=== PATIENT | female | born 1960 | race Caucasian/White ===

== ENCOUNTER → 2023-01-04 09:04 | Outpatient (BNVA) | payer OTHER, SELFPAY | PROVIDERS: Visit Provider Family Medicine | DX: R53.83 Other fatigue (principal); R63.1 Polydipsia | CPT/HCPCS: 80053; 80061; 81000; 84439; 84443; 85025 ==

== ENCOUNTER 2023-01-14 11:43 | Outpatient (CLI) | payer OTHER, SELFPAY ==
--- NOTE | 2023-01-14 12:00 | MM_ITS ---
WS: [id number] BILATERAL SCREENING DIGITAL TOMOSYNTHESIS MAMMOGRAM WITH CAD HISTORY: Screening. COMPARISON: None available. Bilateral CC and MLO views with tomosynthesis and synthetic mammography submitted. Computer aided det ection analyzed. Breast composition: The breasts are heterogeneously dense, which may obscure small masses. No suspici ous masses, microcalcifications or architectural distortion. Benign calcification anterior LEFT breas t. MM/[place] [id number] IMPRESSION: BI-RADS: 2-Benign FOLLOW UP: 1 Year Follow-up
== END 2023-01-14 11:44 | disposition home or self-care (01) ==
LOC: RAD 11:49
PROVIDERS: PCP Family Medicine; Visit Provider Family Medicine
DX: Z12.31 Encounter for screening mammogram for malignant neoplasm of breast (principal)
CPT/HCPCS: 77063; 77067; 80053; 80061; 81000; 84439; 84443; 85025

== ENCOUNTER → 2023-01-18 09:40 | Outpatient (BNVA) | payer OTHER, SELFPAY | PROVIDERS: PCP Family Medicine; Visit Provider Family Medicine | DX: N39.0 Urinary tract infection, site not specified (principal) | CPT/HCPCS: 81000; 81003 ==

== ENCOUNTER 2023-09-17 06:00 | Outpatient (RCR) | payer OTHER, SELFPAY | END 2023-09-21 23:59 | disposition home or self-care (01) | LOC: GPT 06:00 | PROVIDERS: Visit Provider Orthopaedic Surgery | DX: M16.11 Unilateral primary osteoarthritis, right hip (principal) | CPT/HCPCS: 97110; 97140; 97162 ==

== ENCOUNTER 2023-09-22 06:00 | Outpatient (RCR) | payer OTHER, SELFPAY | END 2023-10-21 23:59 | disposition home or self-care (01) | LOC: GPT 06:00 | PROVIDERS: Visit Provider Orthopaedic Surgery | DX: M16.11 Unilateral primary osteoarthritis, right hip (principal) | CPT/HCPCS: 97110; 97140 ==

== ENCOUNTER 2023-10-22 06:00 | Outpatient (RCR) | payer OTHER, SELFPAY | END 2023-11-21 23:59 | disposition home or self-care (01) | LOC: GPT 06:00 | PROVIDERS: Visit Provider Orthopaedic Surgery | DX: M16.11 Unilateral primary osteoarthritis, right hip (principal) | CPT/HCPCS: 97110; 97112; 97140; 97164; 97530 ==

== ENCOUNTER 2023-11-22 06:00 | Outpatient (RCR) | payer OTHER, SELFPAY | END 2023-12-22 23:59 | disposition home or self-care (01) | LOC: GPT 06:00 | PROVIDERS: Visit Provider Orthopaedic Surgery | DX: M16.11 Unilateral primary osteoarthritis, right hip (principal) | CPT/HCPCS: 97110; 97112 ==

== ENCOUNTER 2024-03-07 11:46 | Emergency (ER) | payer MEDICARE, OTHER, SELFPAY ==
[2024-03-07] VITALS (21 sets, daily range): BP systolic 141–183; BP diastolic 80–104; PULSE 78–103; RESP 11–20; TEMP 36.4; O2SAT 96–100; BMI 26.6
--- NOTE | 2024-03-07 11:49 | ECG_ITS ---
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 Measurements Intervals [place] Rate: 83 P: 67 SD: 172 QRS: 37 QRSD: 86 T: 23 QT: 378 QTc: 446 Interpretive Statements SINUS RHYTHM No previous ECG available for comparison Electronically Signed On 03-07-2024 12:27:26 CDT by Ok Purcell M.D. [id number]
--- NOTE | 2024-03-07 11:49 | XR_ITS ---
WS: [id number] Exam: XR chest 1V portable [id number] Date/Time of Exam: 03/07/2024 11:58 AM Reason For Exam: chest pain No priors. The lungs are fully expanded and clear. Normal cardiomediastinal silhouette. No pleural effusions. Mi ld dextroscoliosis of the T-spine. IMPRESSION: 1. No acute cardiopulmonary finding.
[2024-03-07 12:05] LABS: Basophils % 0.3 %; Eosinophils # 0.1 10^3/uL (0.0-0.8); Hematocrit 36.4 % (36-47); Lymphocytes # 2.3 10^3/uL (0.8-4.8); Lymphocytes % 19.4 %; Mean Corpuscular HGB Conc 32.1 g/dL (30-55); Mean Corpuscular Hemoglobin 30.2 pg (27-33); Mean Corpuscular Volume 94.1 fl (85-98); Mean Platelet Volume 10.4 fL (7.4-10.4); Monocytes # 0.7 10^3/uL (0.2-0.9); Monocytes % 5.8 %; Neutrophils # 8.76 10^3/uL (1.8-7.7); Neutrophils % 73.1 %; Nucleated Red Blood Cells % 0 %; Platelet Count 234 10^3/cmm (157-399); Red Blood Count 3.87 10^6/uL (3.85-5.65); Red Cell Distribution Width 12.5 % (12.1-15.1); White Blood Count 11.99 10^3/uL (3.29-11.43)
[2024-03-07 12:14] LABS: INR 0.97 (0.8-1.2)
[2024-03-07 12:20] LABS: Alanine Aminotransferase 10 U/L (0-33); Alkaline Phosphatase 89 U/L (35-105); Anion Gap 15.6 (5-19); Aspartate Amino Transferase 15 U/L (0-32); Blood Urea Nitrogen 18 mg/dL (8-23); Carbon Dioxide 23 mmol/L (22-29); Chloride 107 mmol/L (98-107); Creatinine Clr Calc Pharmacy 72.5125; Globulin 2.8 g/dL (1.3-4.6); Glucose 108 mg/dL (65-115); Lipase 45 U/L (13-60); Osmolality Calculated 294 mOsm/kg (285-295); Potassium 4.6 mmol/L (3.5-5.1); Sodium 141 mmol/L (136-145); Total Bilirubin 0.2 mg/dL (0.15-1.2); Total Protein 6.8 g/dL (6.6-8.7)
[2024-03-07 12:21] LABS: Troponin(5th) Baseline 7 ng/L (0-10)
[2024-03-07] MEDS: sodium chloride 0.9% 1,000 ML 999 ML IV (12:46)
[2024-03-07] MEDS: ketorolac 30 mg/mL INJ IVP (12:48)
[2024-03-07] MEDS: metoclopramide 5 mg/mL SDV 2 mL 10 MG IVP (12:50)
--- NOTE | 2024-03-07 13:12 | ED_ITS ---
HPI - Chest Pain 2 General: Chief Complaint: Chest Pain Stated Complaint: Chestpain, Abd pain HTN Time Seen by Provider: 03/07/24 11:49 History of Present Illness: Patient presents to the ER with complaints of chest pain that radiates to her abdomen but also radiates up into her neck and around back of her head. Patient says she has been very nauseous but has not vomited. Patient denies any fever. Patient says she is been battling the headaches off and on for about the last 2 months and a headache usually causes abdominal pain. This time patient is noted chest pain also. She says the chest pain is new. Chest pain is not reproducible with palpation. There is nothing that brings the chest pain on or makes it stop. Review of Systems 2 General: Reports: 10 or more systems reviewed and unremarkable except in HPI and below PFSH ED 2 PFSH: Family History Other Cancer Social History Smoking and tobacco/nicotine status: former use of tobacco/nicotine Quit status (tobacco/nicotine): has quit using Second hand smoke exposure: Yes Alcohol intake: never Household members: spouse Physical Exam 2 Const: COMMON NORMALS: no acute distress, average body habitus, patient oriented x3, no limitations, healthy appearing, alert and well nourished HENMT: COMMON NORMALS: normocephalic, atraumatic, hearing grossly normal bilaterally, external ears normal, Normal external nose present, moist oral mucous membranes and oropharynx normal HEAD & SCALP: normocephalic and atraumatic NOSE: Normal external nose present EXTERNAL EAR: Yes external ears normal Neck/C-Spine: COMMON NORMALS: full ROM, no lymphadenopathy, supple, no meningeal signs, no JVD and Thyroid normal THYROID: Thyroid normal Chest: COMMONS NORMALS: normal inspection of the chest and normal palpation of entire chest wall Resp: COMMON NORMALS: normal respiratory effort, No retractions, No use of accessory muscles and clear to auscultation bilaterally AUSCULTATION: clear to auscultation bilaterally Cardio: COMMON NORMALS: no JVD, regular rate, regular rhythm, S1 normal heart sound present, S2 normal heart sound present, No gallops present (Cardio), No clicks present (Cardio), No murmurs present (Cardio) and No rub (Cardio) R ATE: regular rate RHYTHM: regular rhythm HEART SOUNDS: S1 normal heart sound present and S2 normal heart sound present GI: COMMON NORMALS: Normal to inspection, nondistended, normoactive bowel sounds present, Soft to palpation, non-tender, No hepatosplenomegaly present and no masses PALPATION: Yes Soft to palpation and Yes No hepatosplenomegaly present Neuro: COMMON NORMALS: patient oriented x3 SENSORIUM/ORIENTATION: Yes alert MENINGEAL SIGNS: Yes no meningeal signs Course 2 Vital Signs: Vital signs: Vital Signs Temperature 97.6 F 03/07/24 11:48 Pulse Rate 84 03/07/24 15:20 Respiratory Rate 13 03/07/24 15:20 Blood Pressure 142/92 03/07/24 15:20 Pulse Oximetry 96 03/07/24 15:20 Oxygen Delivery Me thod Room Air 03/07/24 13:51 MDM - Chest Pain Medical Decision Making Patient was worked up in a typical chest pain fashion with serial EKGs serial enzymes chest x-ray. Patient was also given 30 of Toradol, 10 of Reglan, 80 Zofran, this helped her headache and her nausea. Patient be discharged home to follow-up with her PCP on an as-needed basis. Differential Diagnosis Unlikely acute massive pulmonary embolism, acute respiratory failure, acute myocardial infarction, cardiac arrest or sudden cardiac Medical Records I reviewed the patient's medical records. Lab Data I reviewed the patient's lab results. 03/07/24 11:55 03/07/24 11:55 Laboratory Results WBC 11.99 10^3/uL (3.29-11.43) H 03/07/24 11:55 RBC 3.87 10^6/uL (3.85-5.65) 03/07/24 11:55 Hgb 11.70 g/dL (11.27-16.99) 03/07/24 11:55 Hct 36.4 % (36-47) 03/07/24 11:55 MCV 94.1 fl (85-98) 03/07/24 11:55 MCH 30.2 pg (27-33) 03/07/24 11:55 MCHC 32.1 g/dL (30-55) 03/07/24 11:55 RDW 12.5 % (12.1-15.1) 03/07/24 11:55 Plt Count 234 10^3/cmm (157-399) 03/07/24 11:55 MPV 10.4 fL (7.4-10.4) 03/07/24 11:55 Neut % (Auto) 73.1 % 03/07/24 11:55 Lymph % (Auto) 19.4 % 03/07/24 11:55 Mccone % (Auto) 5.8 % 03/07/24 11:55 Eos % (Auto) 1.0 % 03/07/24 11:55 Baso % (Auto) 0.3 % 03/07/24 11:55 Neut # (Auto) 8.76 10^3/uL (1.8-7.7) H 03/07/24 11:55 Lymph # (Auto) 2.3 10^3/uL (0.8-4.8) 03/07/24 11:55 Mccone # (Auto) 0.7 10^3/uL (0.2-0.9) 03/07/24 11:55 Eos # (Auto) 0.1 10^3/uL (0.0-0.8) 03/07/24 11:55 Baso # (Auto) 0.0 10^3/uL (0.0-0.1) 03/07/24 11:55 Nucleated RBC % (auto) 0 % 03/07/24 11:55 Nucleated RBCs # 0.0 /100WBC 03/07/24 11:55 PT 13.10 SECONDS (12.1-14.9) 03/07/24 11:55 INR 0.97 (0.8-1.2) 03/07/24 11:55 Sodium 141 mmol/L (136-145) 03/07/24 11:55 Potassium 4.6 mmol/L (3.5-5.1) 03/07/24 11:55 Chloride 107 mmol/L (98-107) 03/07/24 11:55 Carbon Dioxide 23 mmol/L (22-29) 03/07/24 11:55 Anion Gap 15.6 (5-19) 03/07/24 11:55 BUN 18 mg/dL (8-23) 03/07/24 11:55 Creatinine 0.8 mg/dL (0.5-0.9) 03/07/24 11:55 GFR Calculation 72.0 mL/min (90-130) L 03/07/24 11:55 Glucose 108 mg/dL (65-115) 03/07/24 11:55 Calculated Osmolality 294 mOsm/kg (285-295) 03/07/24 11:55 Calcium 9.0 mg/dL (8.5-10.5) 03/07/24 11:55 Total Bilirubin 0.2 mg/dL (0.15-1.2) 03/07/24 11:55 AST 15 U/L (0-32) 03/07/24 11:55 ALT 10 U/L (0-33) 03/07/24 11:55 Alkaline Phosphatase 89 U/L (35-105) 03/07/24 11:55 Troponin T Baseline 7 ng/L (0-10) 03/07/24 11:55 Troponin T 120 Minute 7.18 ng/L (0-10) 03/07/24 14:00 Delta Troponin T 0.18 ABS# (0-10) 03/07/24 14:00 Total Protein 6.8 g/dL (6.6-8.7) 03/07/24 11:55 Albumin 4.0 g/dL (3.5-5.2) 03/07/24 11:55 Globulin 2.8 g/dL (1.3-4.6) 03/07/24 11:55 Lipase 45 U/L (13-60) 03/07/24 11:55 Urine Color Yellow (Yellow) 03/07/24 13:45 Urine Appearance Hazy (CLEAR) A 03/07/24 13:45 Urine pH 8 (5-7) H 03/07/24 13:45 Ur Specific [place] 1.010 (1.005-1.030) 03/07/24 13:45 Urine Protein Neg (Negative) 03/07/24 13:45 Urine Glucose (UA) Norm (Normal) 03/07/24 13:45 Urine Ketones Negative (Negative) 03/07/24 13:45 Urine Blood Neg (Negative) 03/07/24 13:45 Urine Nitrate Negative (Negative) 03/07/24 13:45 Urine Bilirubin Neg (Negative) 03/07/24 13:45 Prot Sulfosalicylic Acd Negative (Negative) 03/07/24 13:45 Urine Urobilinogen Neg mg/dL (Negative) 03/07/24 13:45 Ur Leukocyte Esterase Negative (Negative) 03/07/24 13:45 Urine RBC 0-4 /hpf (0-2) H 03/07/24 13:45 Urine WBC 0-4 /hpf (0-5) H 03/07/24 13:45 Ur Squamous Epith Cells 5-10 /hpf (0-5) H 03/07/24 13:45 Amorphous Sediment Not Reportable 03/07/24 13:45 Urine Bacteria Trace /hpf (NONE) 03/07/24 13:45 All radiology interpretation(s) finalized by discharge EKG Data EKG 1: I personally reviewed and interpreted this EKG as follows: EKG interpretation date: 03/07/24 EKG interpretation time: 11:51 Interpretation: Ventricular rate 83 bpm, HI interval 172, QRS duration 86, QTc of 418, sinus rhythm EKG 2: I personally reviewed and interpreted this EKG as follows: EKG interpretation date: 03/07/24 EKG interpretation time: 14:30 Prior EKG tracings: available for review Interpretation: Ventricular rate 93 beats minute, HI interval 177, QRS duration 106, QTc of 417, sinus rhythm Discharge Plan Discharge Patient Disposition: Home Clinical Impression: Atypical chest pain Headache Qualifiers: Headache type: tension-type Headache chronicity pattern: acute headache I ntractability: not intractable Qualified Code(s): G44.209 - Tension-type headache, unspecified, not intractable Condition: Stable Prescriptions: No Action meloxicam 15 mg tablet 15 mg PO QAM tolterodine 4 mg capsule,extended release 24hr 4 mg PO QAM Tylenol Ex Str Rapid Release 500 mg Tablet 500 mg PO QAM Discharge Orders: Discharge ED (Routine); Ordered 03/07/24 Ordered By: Shabbir Johnson Referrals: River Jimenez DO [Primary Care Provider] - 1 week Patient Instructions: Tension Headache (ED), Noncardiac Chest Pain (ED) Activity Restrictions/Additional Instructions: Your evaluation in the ER did not show any acute cardiac cause of your chest pain. It is felt to be noncardiac in nature. Your headache is thought to be a tension headache. Follow-up with your family practitioner in for further evaluation testing as needed. If your pain becomes unbearable or returns please feel free to return to the ER. Coding Level of Care Code ED Distance Education Coordinator for Mehran Mosquera
[2024-03-07 14:25] LABS: Troponin 5 2HR 7.18 ng/L (0-10); Troponin 5 2HR Delta 0.18 ABS# (0-10)
--- NOTE | 2024-03-07 14:30 | ECG_ITS ---
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 Measurements Intervals [place] Rate: 93 P: 62 SC: 177 QRS: 32 QRSD: 106 T: 13 QT: 367 QTc: 456 Interpretive Statements SINUS RHYTHM Compared to ECG 03/07/2024 11:51:06 No significant changes Electronically Signed On 03-07-2024 17:40:33 CDT by Ok Purcell M.D. [id number]
[2024-03-07 14:31] LABS: Add Urine Culture? No; Add Urine Microscopic? YES; Bacteria Urine TRACE /hpf; Bilirubin Urine Neg (Negative); Blood Urine Neg (Negative); Glucose Urine UA Norm (Normal); Ketones Urine Negative (Negative); Leukocyte Esterase Urine Negative (Negative); Nitrate Urine Negative (Negative); Protein Urine Neg (Negative); RBC Urine 0-4 /hpf (0-2); Sulfosalicylic Acid Urine Negative (Negative); Urine Appearance Hazy (CLEAR); Urine Color Yellow (Yellow); Urobilinogen Urine Neg (Negative); WBC Urine 0-4 /hpf (0-5); pH Urine 8 (5-7)
[2024-03-07] MEDS: ondansetron 2 mg/ML SDV 2 mL 8 MG IVP (14:58)
== END 2024-03-07 16:27 | disposition home or self-care (01) ==
PROVIDERS: Emergency Provider Emergency Medicine; PCP Family Medicine
DX: R07.89 Other chest pain (principal); G44.209 Tension-type headache, unspecified, not intractable; Z87.891 Personal history of nicotine dependence
CPT/HCPCS: 36415; 71045; 80053; 81001; 83690; 84484; 85025; 85610; 93005; 96374; 96375; 99285; J1885; J2405; J2765; J7030

== ENCOUNTER → 2024-03-08 10:40 | Outpatient (BNVA) | payer MEDICARE, OTHER, SELFPAY | PROVIDERS: PCP Family Medicine; Visit Provider Family Medicine | DX: I10 Essential (primary) hypertension (principal) | CPT/HCPCS: 84439; 84443 ==

== ENCOUNTER → 2024-03-15 10:26 | Outpatient (BNVA) | payer MEDICARE, OTHER, SELFPAY | PROVIDERS: PCP Family Medicine; Visit Provider Family Medicine | DX: R19.4 Change in bowel habit | CPT/HCPCS: 82270 ==

== ENCOUNTER → 2024-04-20 11:52 | Outpatient (BNVA) | payer MEDICARE, OTHER, SELFPAY | PROVIDERS: PCP Family Medicine; Visit Provider Family Medicine | DX: R30.0 Dysuria (principal); E78.2 Mixed hyperlipidemia; E78.5 Hyperlipidemia, unspecified | CPT/HCPCS: 80061; 81000 ==

== ENCOUNTER → 2024-06-19 14:00 | Outpatient (BNVA) | payer MEDICARE, OTHER, SELFPAY | PROVIDERS: PCP Family Medicine; Visit Provider Family Medicine | DX: R30.0 Dysuria (principal); E55.9 Vitamin D deficiency, unspecified; K59.01 Slow transit constipation | CPT/HCPCS: 80053; 81000; 82306; 85025; 86140 ==

== ENCOUNTER → 2024-12-18 13:00 | Outpatient (BNVA) | payer MEDICARE, OTHER, SELFPAY | PROVIDERS: PCP Family Medicine; Visit Provider Family Medicine | DX: I10 Essential (primary) hypertension (principal); R79.89 Other specified abnormal findings of blood chemistry; R60.9 Edema, unspecified; E78.5 Hyperlipidemia, unspecified; E67.3 Hypervitaminosis D; R30.9 Painful micturition, unspecified; E55.9 Vitamin D deficiency, unspecified | CPT/HCPCS: 80053; 80061; 81000; 81003; 82043; 82306; 82533; 82607; 83540; 83735; 84443; 85025; 87086 ==

== ENCOUNTER → 2025-01-15 10:26 | Outpatient (BNVA) | payer MEDICARE, OTHER, SELFPAY | PROVIDERS: PCP Family Medicine; Visit Provider Student in an Organized Health Care Education/Training Program | DX: R10.33 Periumbilical pain (principal); K59.09 Other constipation | CPT/HCPCS: 99204 ==

== ENCOUNTER 2025-02-27 08:51 | Day surgery (SDC) | payer MEDICARE, OTHER, SELFPAY ==
[2025-02-27 09:11] VITALS: BP 142/89; PULSE 79; RESP 16; TEMP 36.8; O2SAT 97; BMI 26.9
[2025-02-27] MEDS: sodium chloride 0.9% 1,000 ML 15 ML IV (09:20)
[2025-02-27] MEDS: ondansetron 2 mg/ML SDV 2 mL 4 MG IVP (09:42)
--- NOTE | 2025-02-27 09:54 | W.PM.OPSFHP ---
Same Day Surgery H&P Indication for Procedure/HPI DATE OF PROCEDURE: February 27, 2025 CHIEF COMPLAINT/INDICATIONFOR SURGICAL PROCEDURE: abdominal pain PREOP DIAGNOSIS: peptic ulcer disease PLANNED PROCEDURE: Operation Date: 02/27/25 09:00 Proposed Procedures p EGD 49127 15138 G105 R10.9 R19.4(Not Applicable) - Priyank Day MD s Colonoscopy(Not Applicable) - Priyank Day MD Medications/Allergies* Home Medications ?Medication ?Instructions ?Recorded ?Confirmed ?Type acetaminophen 500 mg tablet 500 mg PO QAM 03/07/24 02/27/25 History vibegron 75 mg tablet (Gemtesa) 75 mg PO DAILY 12/25/24 02/27/25 History meloxicam 15 mg tablet 15 mg PO DAILY 01/15/25 02/27/25 History hydroxyzine HCl 25 mg tablet 25 mg PO TID PRN Itching 02/01/25 02/27/25 History metoprolol succinate 25 mg 25 mg PO DAILY 02/01/25 02/27/25 History tablet,extended release 24 hr sennosides 8.6 mg capsule (senna) 8.6 mg PO DAILY PRN Constipation 02/01/25 02/27/25 History Allergies/Adverse Reactions Allergy/AdvReac Type Severity Reaction Status Date / Time ampicillin Allergy Severe Unconscious Verified 02/27/25 09:10 Current Medications: Generic Name Dose Route Start Last Admin Trade Name Freq PRN Reason Stop Dose Admin Sodium Chloride 1,000 mls @ 15 mls/hr 02/27/25 09:08 02/27/25 09:20 Sodium Chloride 0.9% IV 02/28/25 09:07 15 mls/hr .Q24H PRN Administration COLONOSCOPY FLUIDS Pertinent History/Comorbid Conditions* Medical History (Updated 01/15/25 @ 11:17 by Priyank Day MD) Hyperlipemia Family History (Updated 01/04/23 @ 10:15 by Johanna Hernandez MA) Cancer Social History Smoking and tobacco/nicotine status: never used tobacco/nicotine Quit status (tobacco/nicotine): has quit using Second hand smoke exposure: Yes Alcohol intake: never Substance/Drug Use: never Household members: spouse Pertinent Exam Findings alert, oriented x 3, clear to auscultation bilaterally, regular rate & rhythm and procedure specific exam findings abdomen soft, nt, nd Recommendations Risks and benefits of procedure reviewed Surgery/Procedure today Other Plans: EGD colonoscopy today Coding Level of Care Code Acute Code for Chg Fwd
--- NOTE | 2025-02-27 10:23 | P.ANESUD_ITS ---
Pre-Anesthetic Update Pre-Anesthetic Assessment: Date of Surgery/Procedure: 02/27/25 Preop Rona gnosis: peptic ulcer disease Proposed Procedure: Operation Date: 02/27/25 09:00 Proposed Procedures p EGD 50231 23420 G105 R10.9 R19.4(Not Applicable) - Priyank Day MD s Colonoscopy(Not Applicable) - Priyank Day MD Any changes to Pre-Anesthetic Assessment?: No Last Intake: Intake Last Liquid Date 02/26/25 Last Liquid Time 19:30 Last Solid Date 02/25/25 Last Solid Time 17:00 Vitals: Temperature 98.2 F 02/27/25 09:11 Temperature Source Temporal Artery S can 02/27/25 09:11 Pulse Rate 79 02/27/25 09:11 Respiratory Rate 16 02/27/25 09:11 Blood Pressure 142/89 02/27/25 09:11 Blood Pressure Daniela n 106 02/27/25 09:11 Pulse Oximetry 97 02/27/25 09:11 Oxygen Delivery Me thod Room Air 02/27/25 09:11 Exam: Pre-Anes Outpt Exam: alert, oriented x 3, clear to auscultation bi laterally and regular rate & rhythm Cardiac Studies: No Data to Display
--- NOTE | 2025-02-27 10:25 | ANES.PREANE2 ---
Pre-Anesthetic Assessment Height/Weight: Height 1.68 m Weight 75.75 kg Temp Pulse Resp BP Pulse Ox O2 Del Method 98.2 F 79 16 142/89 97 Room Air 02/27/25 09:11 02/27/25 09:11 02/27/25 09:11 02/27/25 09:11 02/27/25 09:11 02/27/25 09:11 Preop Diagnosis: peptic ulcer disease Operation Date: 02/27/25 09:00 Proposed Procedures p EGD 11549 99919 G105 R10.9 R19.4(Not Applicable) - Priyank Day MD s Colonoscopy(Not Applicable) - Priyank Day MD Was Beta Loy taken within 24 hours: Yes Was Clonidine taken within 24 hours: N/A Last intake: Intake Last Liquid Date 02/26/25 Last Liquid Time 19:30 Last Solid Date 02/25/25 Last Solid Time 17:00 Social No alcohol and No tobacco Exam alert, oriented x 3, clear to auscultation bilaterally and regular rate & rhythm Airway Cervical ROM: within normal limits Mallampati: Class III Dentition: full History/ROS No significant history except as noted and No significant complaints Pulmonary None reported CV/HEM Hypertension None reported Hepatic None reported GI None reported Abdominal Pain Metabolic Hyperlipidemia Musc/skel None reported Neuropsych Anxiety Anesthetic Plan ASA status: 2 Anesthesia: MAC Risk of > 500 ml blood loss (7ml/kg in children): No Medications/Allergies Home Medications ?Medication ?Instructions ?Recorded ?Confirmed ?Last Taken ?Type acetaminophen 500 mg tablet 500 mg PO QAM 03/07/24 02/27/25 02/26/25 History amlodipine 2.5 mg tablet 2.5 mg PO DAILY #30 tabs 12/25/24 02/27/25 02/27/25 05:19 Rx vibegron 75 mg tablet (Gemtesa) 75 mg PO DAILY 12/25/24 02/27/25 02/26/25 History meloxicam 15 mg tablet 15 mg PO DAILY 01/15/25 02/27/25 02/26/25 History hydroxyzine HCl 25 mg tablet 25 mg PO TID PRN Itching 02/01/25 02/27/25 02/26/25 History metoprolol succinate 25 mg 25 mg PO DAILY 02/01/25 02/27/25 02/27/25 05:19 History tablet,extended release 24 hr sennosides 8.6 mg capsule (senna) 8.6 mg PO DAILY PRN Constipation 02/01/25 02/27/25 2 Weeks Ago History ~02/07/25 Allergies Allergy/AdvReac Type Severity Reaction Status Date / Time ampicillin Allergy Severe Unconscious Verified 02/27/25 09:10 Current Medications Generic Name Dose Route Start Last Admin Trade Name Freq PRN Reason Stop Dose Admin Sodium Chloride 1,000 mls @ 15 mls/hr 02/27/25 09:08 02/27/25 09:20 Sodium Chloride 0.9% IV 02/28/25 09:07 15 mls/hr .Q24H PRN Administration COLONOSCOPY FLUIDS PFSH Anesthesia Medical History Hyperlipemia Family History Other Cancer Social History Smoking and tobacco/nicotine status: never used tobacco/nicotine Quit status (tobacco/nicotine): has quit using Second hand smoke exposure: Yes Alcohol intake: never Substance/Drug Use: never Household members: spouse Female Reproductive History Spontaneous abortions: No Data Anesthesia Cardiac Studies: No Data to Display
[2025-02-27 11:25] VITALS: BP 116/78; PULSE 82; RESP 14; TEMP 36.1; O2SAT 99
[2025-02-27 11:38] VITALS: BP 108/77; PULSE 69; RESP 14; O2SAT 97
[2025-02-27 11:57] VITALS: BP 129/90; PULSE 72; RESP 16; O2SAT 97
--- NOTE | 2025-02-27 12:22 | ANE.PACU2 ---
Inpatient post-anesthesia follow up: Airway intact: Yes Vital signs: Temperature 97.0 F Pulse Rate 72 Respiratory Rate 16 Blood Pressure 129/90 Pulse Oximetry 97 Oxygen Delivery Me thod Room Air Oxygen Flow Rate Fraction of Inspir ed Oxygen Hydration adequate: Yes Nausea and vomiting: No Pain level: 1 Mental status: Baseline
== END 2025-02-27 12:22 | disposition home or self-care (01) ==
PROVIDERS: PCP Family Medicine; Visit Provider Student in an Organized Health Care Education/Training Program
PROC: 0DJ08ZZ Inspection of Upper Intestinal Tract, Via Natural or Artificial Opening Endoscopic (ICD-10-PCS; principal; 2025-02-27 09:00)
PROC: 0DJD8ZZ Inspection of Lower Intestinal Tract, Via Natural or Artificial Opening Endoscopic (ICD-10-PCS; CPT 45378; 2025-02-27 09:00)
DX: K57.30 Diverticulosis of large intestine without perforation or abscess without bleeding (principal); I10 Essential (primary) hypertension; K29.50 Unspecified chronic gastritis without bleeding; E78.5 Hyperlipidemia, unspecified; Z79.899 Other long term (current) drug therapy; Z88.0 Allergy status to penicillin; Z87.11 Personal history of peptic ulcer disease
CPT/HCPCS: 43239; 45378; 88305; 88342; J2405; J2704; J7030

== ENCOUNTER → 2025-03-15 09:16 | Outpatient (BNVA) | payer MEDICARE, OTHER, SELFPAY | PROVIDERS: PCP Family Medicine; Visit Provider Student in an Organized Health Care Education/Training Program | DX: Z09 Encounter for follow-up examination after completed treatment for conditions other than malignant neoplasm (principal) | CPT/HCPCS: 99213 ==

== ENCOUNTER → 2025-04-25 12:14 | Outpatient (BNVA) | payer MEDICARE, OTHER, SELFPAY | PROVIDERS: PCP Family Medicine; Visit Provider Family Medicine | DX: I10 Essential (primary) hypertension (principal); E55.9 Vitamin D deficiency, unspecified; R53.83 Other fatigue | CPT/HCPCS: 80053; 82652; 84443 ==

== ENCOUNTER → 2025-05-07 13:30 | Outpatient (BNVA) | payer MEDICARE, OTHER, SELFPAY | PROVIDERS: PCP Family Medicine; Visit Provider Nurse Practitioner Family | DX: R53.83 Other fatigue (principal); W57.XXXA Bitten or stung by nonvenomous insect and other nonvenomous arthropods, initial encounter | CPT/HCPCS: 86160; 86618; 86666; 86668; 86757 ==

== ENCOUNTER 2025-05-08 11:36 | Outpatient (CLI) | payer MEDICARE, OTHER, SELFPAY ==
--- NOTE | 2025-05-08 12:00 | MM_ITS ---
WS: [id number] BILATERAL 3D TOMOSYNTHESIS DIGITAL SCREENING MAMMOGRAPHY WITH CAD CLINICAL INFORMATION: Z12.31 - Encounter for screening mammogram for malignant ... HISTORY: Screening mammogram. No current complaints. COMPARISON: 2022 TECHNIQUE: Bilateral CC and MLO views. FINDINGS: The breasts are composed of heterogeneous fibroglandular density tissue, which can limit the detection of small underlying mass lesions. No suspicious mass, asymmetry, calcifications, or architectural distortion. No evidence of malignancy. Benign calcifications LEFT breast MM/MM [facility] tomosynthesis [id number] IMPRESSION: DENSITY: The breasts are heterogeneously dense, which may obscure small masses. BI-RADS: 2 - Benign FOLLOW UP: 1 Year Follow-up Recommend return to annual screening mammography.
== END 2025-05-08 11:37 | disposition home or self-care (01) ==
PROVIDERS: PCP Family Medicine; Visit Provider Family Medicine
DX: Z12.31 Encounter for screening mammogram for malignant neoplasm of breast (principal); R92.333 Mammographic heterogeneous density, bilateral breasts; R92.1 Mammographic calcification found on diagnostic imaging of breast
CPT/HCPCS: 77063; 77067

== ENCOUNTER → 2025-10-24 10:02 | Outpatient (BNVA) | payer MEDICARE, OTHER, SELFPAY | PROVIDERS: PCP Family Medicine; Visit Provider Family Medicine | DX: E55.9 Vitamin D deficiency, unspecified (principal); R53.82 Chronic fatigue, unspecified; N18.2 Chronic kidney disease, stage 2 (mild); I10 Essential (primary) hypertension; E78.2 Mixed hyperlipidemia | CPT/HCPCS: 80053; 80061; 81000; 82306; 82607; 82746; 83735; 84439; 84443; 85025; 85651; 86038; 86140; 86431; 87086 ==

== ENCOUNTER → 2025-11-08 12:53 | Outpatient (BNVA) | payer MEDICARE, OTHER, SELFPAY | PROVIDERS: PCP Family Medicine; Referring Provider Family Medicine; Visit Provider Internal Medicine Rheumatology | DX: R76.89 Other specified abnormal immunological findings in serum (principal); M13.0 Polyarthritis, unspecified; Z79.899 Other long term (current) drug therapy; Z71.85 Encounter for immunization safety counseling; M47.816 Spondylosis without myelopathy or radiculopathy, lumbar region; M41.86 Other forms of scoliosis, lumbar region | CPT/HCPCS: 36415; 72100; 80076; 82306; 82565; 83520; 85025; 85651; 86140; 86160; 86162; 86200; 86235; 86255; 86376; 86480; 86704; 86803; 87340; 99204 ==

== ENCOUNTER 2025-11-14 14:47 | Outpatient (CLI) | payer MEDICARE, OTHER, SELFPAY ==
--- NOTE | 2025-11-14 15:15 | US_ITS ---
WS: [id number] RENAL ULTRASOUND HISTORY: R10.9 - Unspecified abdominal pain COMPARISON: None available. TECHNIQUE: 2-D and color Doppler imaging of the kidney submitted. Right kidney: 10.3 cm x 4.9 cm x 5.3 cm. Cortex: 1.0 cm Normal size kidney. Parapelvic and cortical cysts are identified. Largest cyst in the superior renal pelvis measures 2.7 x 2.3 x 4.0 cm. No hydronephrosis. No solid mass. Mild increased echogenicity. Left kidney: 11.7 cm x 4.2 cm x 5.0 cm. Cortex: 1.1 cm Small parapelvic indeterminate low-attenuation mass. These are probably cysts. Largest measures 2.2 x 2.2 x 1.4 cm. No obstruction. Aorta: Mild atherosclerosis. Urinary Bladder: Normal distention. US/US renal BI* [id number] IMPRESSION: 1. No renal obstruction. 2. Parapelvic and cortical cyst RIGHT kidney. 3. Indeterminate low-attenuation masses in the LEFT renal pelvis. Consider CT or MRI evaluation with and without contrast as per renal mass protocol.
== END 2025-11-14 14:48 | disposition home or self-care (01) ==
LOC: RAD 14:48
PROVIDERS: PCP Family Medicine; Visit Provider Family Medicine
DX: R10.9 Unspecified abdominal pain (principal); R31.9 Hematuria, unspecified; R76.89 Other specified abnormal immunological findings in serum; N28.1 Cyst of kidney, acquired; R93.41 Abnormal radiologic findings on diagnostic imaging of renal pelvis, ureter, or bladder
CPT/HCPCS: 76770